=== PATIENT | female | born 2000 | race Caucasian/White ===

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

== ENCOUNTER 2021-06-10 08:59 | Emergency (ER) | payer MEDICAID, SELFPAY ==
[2021-06-10 09:00] VITALS: BP 115/86; PULSE 104; RESP 14; TEMP 36.3; O2SAT 100; BMI 26.5
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
[2021-06-10] MEDS: Lidocaine/Epi/Tetracaine 50 ML 1 APPLIC TOPICAL (09:44)
[2021-06-10 10:28] VITALS: BP 120/70
== END 2021-06-10 10:29 | disposition home or self-care (01) ==
PROVIDERS: Emergency Provider Emergency Medicine; PCP Family Medicine; Visit Provider Emergency Medicine
DX: S01.81XA Laceration without foreign body of other part of head, initial encounter (principal); F17.290 Nicotine dependence, other tobacco product, uncomplicated; W01.0XXA Fall on same level from slipping, tripping and stumbling without subsequent striking against object, initial encounter
CPT/HCPCS: 12011; 99282